=== PATIENT | male | born 1960 | race Caucasian/White ===

== ENCOUNTER 2025-04-03 19:06 | Observation (INO) | payer MEDICARE, OTHER, SELFPAY ==
[2025-04-03] VITALS (10 sets, daily range): BP systolic 119–148; BP diastolic 67–99; BMI 29.2
[2025-04-03 14:00] LABS: Hematocrit 41.4 % (39.0-52.0); Hemoglobin 13.8 g/dL (13.0-18.0); Mean Corp Hgb Conc. 33.3 g/dL (33.0-37.0); Mean Corpuscular Volume 91.6 fL (80.0-94.0); Nucleated Red Blood Cells % 0 % (-); Platelet Count 263 10^3/uL (130-400); Red Cell Dist. Width 13.6 % (11.5-14.5)
[2025-04-03 14:18] LABS: ALT (SGPT) < 10 U/L (0-50); AST (SGOT) 22 U/L (17-59); Albumin 3.8 g/dl (3.5-5.0); Alkaline Phosphatase 135 U/L (38-126); Blood Urea Nitrogen 19 mg/dl (9-20); Calcium 8.7 mg/dl (8.4-10.2); Carbon Dioxide 26 mmol/L (22-30); Chloride 106 mmol/L (98-107); Glucose 121 mg/dl (70-99); Lipase 86 U/L (23-300); Potassium 4.4 mmol/L (3.5-5.1); Sodium 137 mmol/L (135-145); Total Protein 6.8 g/dl (6.3-8.2); eGFR > 60.00
--- NOTE | 2025-04-03 14:38 | ED.GENMED ---
History of Present Illness
General
Chief Complaint: Abdominal Pain
Source: patient
Exam Limitations: none
Time Seen by Provider: 04/03/25 14:03
Nursing documentation reviewed up to this point in time: agreed with
History of Present Illness
History of Present Illness:
Patient is a 64-year-old male from [facility] with past medical history of dementia Parkinson's CAD [place] high cholesterol schizoaffective disorder presents to the ER complaining mid abdominal pain. Patient has a history as document of Parkinson's and
dementia . at bedside reports that she was told that since 4 AM patient has been grimacing complaining of abdominal pain in the lower abdominal region. He is a poor historian however grimaces on exam. She reports no fevers. Incidentally she
also reports that several days ago patient apparently fell and has some bruising to his head and was not evaluated for that. He is not on blood thinners other than aspirin. reports patient did have a bowel movement today.
Past History
Past History
ED Past Medical History: Hypercholesterolemia
Social History
Employment: Employed
Phy Exam
General Physical Exam
General Presentation: no apparent distress
General age: appears stated age
General Skin: warm and dry
General Habitus: normal
General Mental: confused (Baseline as per )
General Hydration: appears well hydrated
Cardiovascular Exam
Cardiovascular Exam: regular rate/rhythm, no murmur and normal peripheral pulses
Pulmonary Exam
Pulmonary Exam: lungs clear and no respiratory distress
Neurological Exam
Neurological Exam: alert
Musculoskeletal Exam
Musculoskeletal Exam: other ( + small Ecchymosis to posterior occiput)
Skin Exam
Skin Exam: normal color and warm/dry
Psychiatric Exam
Psychiatric Exam: normal mood/affect
Course
Orders/Labs/Results
Orders:
Orders
04/03/25 Breakfast
Cholesterol Lowering
At Your Request: Limited Participation
Cholesterol Lowering: Sodium, 2 Gram
04/03/25 13:55
Complete Blood Count/With Diff Urgent
Comprehensive Metabolic Panel Urgent
Lipase Urgent
04/03/25 14:58
CT Abd/pelvis W Iv Cont Urgent
Comment:
Reason For Exam: lower abd pain
CT Head W/o Iv Contrast Urgent
Comment:
Reason For Exam: trauma
04/03/25 14:59
0.9% Sodium Chloride 1000 ml [Nss] 1,000 ml IV BOLUS
04/03/25 15:01
Bladder Scan- Treatment ONCE
04/03/25 15:07
Carbidopa/Levodopa [Sinemet 25-100] 2 tablet PO NOW STA
04/03/25 15:14
Lidocaine 2% [Lidocaine Uro-Jet 2%] 1 syringe .ROUTE .STK-MED ONE
04/03/25 15:40
Melgar [Melgar Placement- Treatment] ONCE
Reason for insertion: Acute Retention
04/03/25 15:42
UA Reflex to Culture [Urinalysis Reflex To Culture] Urgent
Date Specimen was Collected: 04/03/25
Time Specimen was Collected: 15:40
04/03/25 18:26
Magnesium Citrate [Citroma] 300 ml PO ONCE ONE
04/03/25 18:31
Admit/Transfer Patient As Directed
Co-Sign Provider:
Level of Care: Observation services
Assign to:: Medical/Surgical
Physician / Group: ramona
Diagnosis: stercoral colitis
04/03/25 18:32
PRN Pain Medication Management As Directed
May give lesser potent ordered pain med per pt: Yes
preference::
Protocol:: Medication orders for pain may be administered in a
manner that supports deferring to patient preference
when the pt is:
- Requesting an ordered lesser potent pain medication.
Least to most potent pain medications are defined
as: acetaminophen < NSAID < tramadol < opioids
(morphine, oxycodone, hydromorphone).
- Requesting a lesser dose of the same medication IF
ORDERED.
- Requesting a less intrusive route of administration
if both routes are prescribed by the provider (PO <
IV).
04/03/25 18:33
Code Status As Directed
Resuscitation Status: Full Code
04/03/25 20:00
Carbidopa/Levodopa [Sinemet 25-100] 2 tablet PO ONCE ONE
04/03/25 20:32
Acetaminophen [Tylenol] 650 mg PO Q4HPRN PRN
Bisacodyl [Dulcolax] 10 mg RECTAL [id number] PRN
Docusate W/Senna [Senokot-S] 1 tablet PO BIDPRN PRN
Memantine HCl [Namenda] 10 mg PO BID
Polyethylene Glycol Powder [Miralax] 17 grams PO DAILYPRN PRN
Tamsulosin [Flomax] 0.4 mg PO QPM
selegiline HCl 5 mg PO BID
04/03/25 20:32
Activity As Directed
Activity Level: As Tolerated
Melgar Catheter [Catheter- Indwelling] As Directed
Reason for insertion: Acute Retention
Discontinue Date/Time: 04/06/25 0600
Vital Signs As Directed
Frequency: Per unit guidelines
Ot Eval And Treat Routine
Pt Eval And Treat Routine
Activity Level: As Tolerated
DX Deep Vein Thrombosis Video Routine
04/03/25 22:00
Divalproex Delayed Rel. 12 Hr [Depakote (12 Hr Release)] 500 mg PO HS
Donepezil HCl [Aricept] 10 mg PO HS
Polyethylene Glycol Powder [Miralax] 17 grams PO DAILY
04/04/25 06:00
Carbidopa/Levodopa [Sinemet 25-100] 2 tablet PO QID@06,10,13,16
Quetiapine Fumarate [Seroquel] 12.5 mg PO DAILY@0600
04/04/25 08:00
Amantadine [Symmetrel] 200 mg PO DAILY
Aspirin Low Dose EC [Aspir Low (Enteric Coated)] 81 mg PO DAILY
Divalproex Extended Rel. 24 Hr [Depakote ER (24 Hr Release)] 250 mg PO DAILY
Furosemide [Lasix] 20 mg PO DAILY
Metoprolol Xl [Toprol Xl] 25 mg PO DAILY
Rotigotine [Neupro] 4 mg TRANSDERM DAILY
Sennosides [Senokot] 8.6 mg PO DAILY
Sertraline HCl [Zoloft] 50 mg PO DAILY
lamotrigine [Lamictal] 150 mg PO DAILY
pimavanserin [Nuplazid] 34 mg PO DAILY
04/04/25 18:00
Atorvastatin [Lipitor] 80 mg PO QPM
Enoxaparin Sodium [Lovenox] 40 mg SC QPM
Abnormal Lab Results
04/03/25 04/03/25
13:55 15:42
RBC 4.52 L 10^6/uL
(4.70-6.10)
Abs Immat Gran (auto) 0.1 H 10^3/uL
(0-0.05)
Absolute Neuts (auto) 7.8 H 10^3/uL
(1.4-6.5)
Lymphocytes % 18.4 L %
(20.5-51.1)
Glucose 121 H mg/dl
(70-99)
Alkaline Phosphatase 135 H U/L
(38-126)
Urine Ketones 1+ A
(Negative)
04/03/25 13:55
04/03/25 13:55
Vital Signs
Initial and Last Documented VS:
Initial Vital Signs
Temp Pulse Resp BP Pulse Ox
97.5 F 65 18 119/67 96
04/03/25 13:43 04/03/25 13:43 04/03/25 13:43 04/03/25 13:43 04/03/25 13:43
Last Documented Vital Signs
Temp Pulse Resp BP Pulse Ox
98.0 F 58 18 132/75 95
04/04/25 07:05 04/04/25 07:05 04/04/25 07:05 04/04/25 07:05 04/04/25 07:05
Earth Moving Technician consulted with Physician
Earth Moving Technician consulted with physician?: Yes
Name of Physician Consulted: ari
MDM/Problems Addressed
Differential Diagnosis Includes:
Not limited to diverticulitis constipation bowel obstruction UTI urinary retention
MDM/Problems Addressed:
Patient is a 64 male with Parkinson's and dementia [facility] of [facility] discomfort. Patient has been grimacing intermittently. On exam of his abdomen he is mildly tender in the suprapubic area. Bladder scan was done
showing greater than 1000 mL of urine Melgar catheter was inserted and urine draining successfully. Because patient has dementia and Parkinson's will also obtain a CAT scan to ensure no further disease process causing patient's pain though likely it
was urinary retention. Patient is afebrile with normal white count stable hemoglobin urine is negative for infection will DC home with a Melgar bag with outpatient urology follow-up.
CAT scan however does show stercoral colitis with no perforation with this finding would recommend observation/abdmission
Chronic conditions affecting care:
Parkinson's dementia enlarged prostate
*Radiology
Radiology exam reviewed: radiology read reviewed
*Pulse Oximetry
SaO2: 96
Oxygen Mode of Delivery: Room air
Patient hypoxic: no
*Critical Care Note
Total Time (30-74mins, 75-104mins- exclusive of procedures): Not Applicable
ED Attending Note
-
Portions of this chart may have been created with voice recognition software.� Occasional wrong word or��sound alike� substitutions may have occurred due to the inherent limitations of voice recognition software.
Discharge Plan
Departure
Patient Disposition: Admit
Date of Disposition: 04/03/25
Time of Disposition: 18:04
Admit to: Med/Surg
Admit to doctor: hospitalist
Presentation/result/management discussed w/ accepting MD/DO: Hospitalist
Patient with high blood pressure during this ER visit?: No
Condition: Fair
Covid-19: Not Applicable
Discharge Problem:
Acute urinary retention, Stercoral colitis
Interventions
Interventions:
*Risk Screen - Suicide Last Done: 04/03/25 13:43
*General Assessment Last Done: 04/03/25 13:43
*Neglect/Abuse Screening Last Done: 04/03/25 13:43
*ED- Fall Risk Assessment Last Done: 04/03/25 14:25
*ED COVID-19 Vaccine History Last Done: 04/03/25 13:47
*ED Influenza Vaccine History Last Done: 04/03/25 13:47
*Nursing Disposition Last Done: 04/03/25 20:11
RG-Dllmnj-Aipfmcffky Assessment Last Done: 04/03/25 14:25
Discharge Date and Time
Discharge Date/Time: 04/03/25 20:12
--- NOTE | 2025-04-03 15:05 | EDRN ---
Pharmacy called to send sinemet at this time.
[2025-04-03] MEDS: SINEMET 25-100 2 TABLET PO ×2 (15:29→19:24)
[2025-04-03] MEDS: NSS 1000 IV (15:32)
--- NOTE | 2025-04-03 15:50 | EDRN ---
Urojet used prior to catheterization. Urine spec obtained and sent.
[2025-04-03 16:05] LABS: Urine Character Clear (Clear)
--- NOTE | 2025-04-03 18:06 | HPS.HSE ---
Family Physician
-
Family Physician: Indira Bennett
Chief Complaint
-
lower abdominal pain
History of Present Illness
64-year-old male with PMH for triple bypass, BPH, TURP, Parkinson,dementia from [facility] presents to the ER complaining mid lower abdominal pain abdominal pain. he voided today morning. he had bowel move yesterday. denied RYDER, dizzy, fever,
chills, chest pain, sob. denied hematuria. Incidentally she also reports that several days ago patient apparently fell and has some bruising to his head and was not evaluated for that. He is not on blood thinners other than aspirin.
His bladder was scanned and noted to have greater than thousand urine in the bladder. Melgar placed. Admitting for further management
Medical History
Past Medical History
Past Medical History: Reports Other
Additional Past Medical History:
Parkinson disease, dementia, coronary artery disease, hyperlipidemia, anxiety
Past Surgical History: Reports None
Additional Past Surgical History:
Triple bypass, TURP
Social History
Tobacco: Former Smoker
Alcohol: None
Drug: None
Personal:
Living: [facility]
Family History
Family History: Not pertinent
Allergies / Home Medications
Allergies reflects when Allergies were last updated in [employer].
Home Medications with original date entered in [employer]
Allergy/Medication List:
Allergies
Allergy/AdvReac Type Severity Reaction Status Date / Time
No Known Allergies Allergy Verified 04/03/25 13:46
Home Medications
Lorazepem Gel 1mg/Ml 1 applic topical Q4HPRN PRN ANXIETY 04/03/25
acetaminophen 325 mg tablet (Tylenol) 650 mg PO Q6HPRN PRN MILD PAIN 04/03/25
amantadine HCl 100 mg capsule 200 mg PO DAILY 04/03/25
aspirin 81 mg tablet,delayed release 81 mg PO DAILY 04/03/25
atorvastatin 80 mg tablet (Lipitor) 80 mg PO QPM High Cholesterol 04/03/25
bisacodyl 10 mg rectal suppository (Dulcolax (bisacodyl)) 10 mg IN DAILYPRN PRN IF NO BM AFTR MOM 04/03/25
carbidopa 25 mg-levodopa 100 mg tablet 2 tab PO QID@06,10,13,16 04/03/25
divalproex 250 mg tablet,extended release 24 hr (Depakote ER) 250 mg PO DAILY Mental Health/Anxiety 04/03/25
divalproex 500 mg tablet,delayed release (Depakote) 500 mg PO HS Mental Health/Anxiety 04/03/25
donepezil 10 mg tablet (Aricept) 10 mg PO HS 04/03/25
furosemide 20 mg tablet (Lasix) 20 mg PO DAILY 04/03/25
ibuprofen 200 mg tablet (Motrin IB) 800 mg PO Q8HPRN PRN MILD PAIN 04/03/25
lamotrigine 150 mg tablet (Lamictal) 150 mg PO DAILY Mental Health/Anxiety 04/03/25
magnesium hydroxide 400 mg/5 mL oral suspension (Milk of Magnesia) 2,400 mg PO [id number] PRN CONSTIPATION 04/03/25
memantine 10 mg tablet 10 mg PO BID 04/03/25
metoprolol succinate 25 mg tablet,extended release 24 hr (Toprol XL) 25 mg PO DAILY Heart Disease/Condition 04/03/25
pimavanserin 34 mg capsule (Nuplazid) 34 mg PO DAILY 04/03/25
quetiapine 25 mg tablet (Seroquel) 12.5 mg PO DAILY@0600 Mental Health/Anxiety 04/03/25
rotigotine 4 mg/24 hour transdermal 24 hour patch (Neupro) 4 mg transdermal DAILY 04/03/25
selegiline HCl 5 mg tablet 5 mg PO BID 04/03/25
sennosides 8.6 mg tablet (senna) 8.6 mg PO DAILY Constipation 04/03/25
sertraline 50 mg tablet 50 mg PO DAILY 04/03/25
sodium phosphates 19 gram-7 gram/118 mL enema (Fleet Enema) 118 ml IN DAILYPRN PRN CONSTIPATION 04/03/25
tamsulosin 0.4 mg capsule 0.4 mg PO QPM Urinary Issue 04/03/25
therapeutic multivitamin 1 tab PO DAILY 04/03/25
Review of Systems
-
Constitutional: Reports No Symptoms
EENT: Reports No Symptoms
Respiratory: Reports No Symptoms
Cardiac: Reports No Symptoms
Abdomen/GI: Reports Abdominal Pain
: Reports No Symptoms
Musculoskeletal: Reports No Symptoms
Skin: Reports No Symptoms
Neurological: Reports No Symptoms
Endocrine: Reports No Symptoms
Hematologic/Lymphatic: Reports No Symptoms
Psych: Reports No Symptoms
Physical Exam
Vital Signs
Vital Signs
Temp Pulse Resp BP Pulse Ox
97.5 F 61 17 138/76 96
04/03/25 13:43 04/03/25 17:45 04/03/25 17:45 04/03/25 17:21 04/03/25 17:30
Physical Exam
General: Well Developed, Well Nourished and No Apparent Distress
HEENT: NormoCephalic, Moist mucous membranes and Atraumatic
Respiratory: Clear
Cardiac: S1/S2 and Regular Rhythm; No Murmur or Rub
GI: Soft, Non Tender, Non Distended and Normal Bowel Sounds; No Organomegaly
Rectal: Deferred by Provider
Musculoskeletal: No Clubbing, No Cyanosis and No Edema
Skin: No Rash
Neuro: Nonfocal/grossly intact
Psych: Calm
Laboratory Results
-
04/03/25 13:55
04/03/25 13:55
Laboratory Results
Total Bilirubin 0.7 mg/dl (0.2-1.3) 04/03/25 13:55
AST 22 U/L (17-59) 04/03/25 13:55
ALT < 10 U/L (0-50) 04/03/25 13:55
Alkaline Phosphatase 135 U/L (38-126) H 04/03/25 13:55
Lipase 86 U/L (23-300) 04/03/25 13:55
Data Reviewed
-
CT Scan: Report Reviewed by me
Lab Data: Labs Reviewed by me
Impression/Plan
-
#abdominal pain likely from stercoral colitis
-CT abdomen pelvis with Significant distention of the rectum with stool. Circumferential rectal wall thickening with stranding in the perirectal fat. Findings are compatible with stercoral colitis. No evidence for perforation.Melgar catheter is
present within the urinary bladder, and the urinary bladder is collapsed, relatively anteriorly displaced due to rectal distention. There is fluid within the upper pelvis adjacent to the superior margin of the bladder, which is also close to the
rectosigmoid junction. This ill-defined fluid is felt to most likely be on the basis of stercoral colitis, although cystitis adjacent to the superior bladder wall is also a possibility.
- Patient is ordered mag citrate
# urinary retention
-bladder scan >1000
-Melgar in place
-Flomax continued
# Fall
-PT/OT consulted
-Head CT negative
# Coronary artery disease
# history of triple bypass
- Aspirin continued
- Statin continued
# History for Parkinson's/dementia
# Anxiety
-Amantadine continued
-Carbidopa levodopa, Aricept continue
-Depakote, Lamictal, Namenda Nuplazid, Seroquel.Neupro,selegiline,sertraline, continued
# Hypertension
-Lasix, Toprol continued
#DVT Prophylaxis
-Lovenox
#CODE status
-full code
--- NOTE | 2025-04-03 18:08 | W.PN.UPDATE ---
Update Note
Progress Note Update
I saw and examined the patient.
The [employer] CONSULTANT or PA's note was reviewed and I agree with the note.
64 y/o M p/w CC abd pain, hx limited due to dementia.
Gen: NAD, Awake and alert
Eyes: EOMI, PERRLA, no scleral icterus.
Neck: supple.
CV: RRR, +S1/S2, no m/r/g.
Resp: CTAB, no rales, wheezes, or rhonchi.
Abd: +BS, soft, suprapubic and left lower quadrant tenderness to palpation, ND
Skin: No rashes.
Neuro: CN 2-12 intact, non-focal.
Psych: Normal mood and affect.
Allergies
Allergy/AdvReac Type Severity Reaction Status Date / Time
No Known Allergies Allergy Verified 04/03/25 13:46
Home Medications
Lorazepem Gel 1mg/Ml 1 applic topical Q4HPRN PRN ANXIETY 04/03/25
acetaminophen 325 mg tablet (Tylenol) 650 mg PO Q6HPRN PRN MILD PAIN 04/03/25
amantadine HCl 100 mg capsule 200 mg PO DAILY 04/03/25
aspirin 81 mg tablet,delayed release 81 mg PO DAILY 04/03/25
atorvastatin 80 mg tablet (Lipitor) 80 mg PO QPM High Cholesterol 04/03/25
bisacodyl 10 mg rectal suppository (Dulcolax (bisacodyl)) 10 mg SC DAILYPRN PRN IF NO BM AFTR MOM 04/03/25
carbidopa 25 mg-levodopa 100 mg tablet 2 tab PO QID@06,10,13,16 04/03/25
divalproex 250 mg tablet,extended release 24 hr (Depakote ER) 250 mg PO DAILY Mental Health/Anxiety 04/03/25
divalproex 500 mg tablet,delayed release (Depakote) 500 mg PO HS Mental Health/Anxiety 04/03/25
donepezil 10 mg tablet (Aricept) 10 mg PO HS 04/03/25
furosemide 20 mg tablet (Lasix) 20 mg PO DAILY 04/03/25
ibuprofen 200 mg tablet (Motrin IB) 800 mg PO Q8HPRN PRN MILD PAIN 04/03/25
lamotrigine 150 mg tablet (Lamictal) 150 mg PO DAILY Mental Health/Anxiety 04/03/25
magnesium hydroxide 400 mg/5 mL oral suspension (Milk of Magnesia) 2,400 mg PO [id number] PRN CONSTIPATION 04/03/25
memantine 10 mg tablet 10 mg PO BID 04/03/25
metoprolol succinate 25 mg tablet,extended release 24 hr (Toprol XL) 25 mg PO DAILY Heart Disease/Condition 04/03/25
pimavanserin 34 mg capsule (Nuplazid) 34 mg PO DAILY 04/03/25
quetiapine 25 mg tablet (Seroquel) 12.5 mg PO DAILY@0600 Mental Health/Anxiety 04/03/25
rotigotine 4 mg/24 hour transdermal 24 hour patch (Neupro) 4 mg transdermal DAILY 04/03/25
selegiline HCl 5 mg tablet 5 mg PO BID 04/03/25
sennosides 8.6 mg tablet (senna) 8.6 mg PO DAILY Constipation 04/03/25
sertraline 50 mg tablet 50 mg PO DAILY 04/03/25
sodium phosphates 19 gram-7 gram/118 mL enema (Fleet Enema) 118 ml SC DAILYPRN PRN CONSTIPATION 04/03/25
tamsulosin 0.4 mg capsule 0.4 mg PO QPM Urinary Issue 04/03/25
therapeutic multivitamin 1 tab PO DAILY 04/03/25
Lab Results
04/03/25 04/03/25
13:55 15:42
WBC 10.6
RBC 4.52 L
Hgb 13.8
Hct 41.4
MCV 91.6
MCH 30.5
MCHC 33.3
RDW 13.6
Plt Count 263
MPV 9.5
Abs Immat Gran (auto) 0.1 H
Absolute Neuts (auto) 7.8 H
Absolute Lymphs (auto) 1.9
Absolute Monos (auto) 0.6
Absolute Eos (auto) 0.1
Absolute Basos (auto) 0.0
Immature Gran % 0.5
Neutrophils % 73.7
Lymphocytes % 18.4 L
Monocytes % 6.1
Eosinophils % 0.9
Basophils % 0.4
Nucleated RBC % 0
Sodium 137
Potassium 4.4
Chloride 106
Carbon Dioxide 26
BUN 19
Creatinine 0.9
eGFR > 60.00
Glucose 121 H
Calcium 8.7
Total Bilirubin 0.7
AST 22
ALT < 10
Alkaline Phosphatase 135 H
Total Protein 6.8
Albumin 3.8
Lipase 86
Urine Color Sylvia
Urine Clarity Clear
Urine pH 7.0
Ur Specific [place] 1.010
Urine Ketones 1+ A
Ur Occult Blood Reflex Negative
Urine Nitrite (Reflex) Negative
Urine Bilirubin Negative
Urine Urobilinogen Negative
Leukocyte Esterase Rfl Negative
Urine Glucose Negative
Urine Albumin (Reflex) Negative
CT brain: No evidence of acute intracranial abnormality.
CT A/P: Significant distention of the rectum with stool. Circumferential rectal wall thickening with stranding in the perirectal fat. Findings are compatible with stercoral colitis. No evidence for perforation. Minaya catheter is present within the
urinary bladder, and the urinary bladder is collapsed, relatively anteriorly displaced due to rectal distention. There is fluid within the upper pelvis adjacent to the superior margin of the bladder, which is also close to the rectosigmoid junction.
This ill-defined fluid is felt to most likely be on the basis of stercoral colitis, although cystitis adjacent to the superior bladder wall is also a possibility.
Acute urinary retention:
-start Flomax
-minaya placed which will remain in place on d/c, outpt Uro f/u
Constipation/stercoral colitis:
- Mag citrate x 1
- Start MiraLAX in the morning
- May need an enema tomorrow
Anticipated discharge tomorrow
--- NOTE | 2025-04-03 20:20 | PTCARENOTE ---
Addendum entered by Angela Espinoza RN 04/04/25 05:36:
Neupro patch located to posterior left shoulder, CDI.
Original Note:
Patient arrived from ED via stretcher to 320, at bedside, pulled over to bed with assist of 3 person. Patient alert, able to answer questions, appears to be forgetful and confused at times. does report recent falls, bed alarm placed on
patient. Hx Parksinsons and Dementia, tremors noted to UEs. Scab to right side of scalp, left inner ankle, and B/L knees with bandaids intact. Red, blanchable sacrum noted. Evening medications provided to patient, tolerating whole with water, no
issues. Boxed lunch also provided to patient, assisted. Patient resting in bed, call fuchs in reach, bed alarm maintained. Will monitor.
[2025-04-03] MEDS: MIRALAX 17 GRAMS PO (21:13)
[2025-04-03] MEDS: ARICEPT 10 MG PO (21:13)
[2025-04-03] MEDS: FLOMAX 0.4 MG PO (21:13)
[2025-04-03] MEDS: CITROMA 300 ML PO (21:13)
[2025-04-03] MEDS: NAMENDA 10 MG PO (21:15)
[2025-04-03] MEDS: DEPAKOTE (12 HR RELEASE) 500 MG PO (21:15)
[2025-04-03] MEDS: BENTYL 20 MG PO (21:52)
--- NOTE | 2025-04-03 23:00 | PTCARENOTE ---
Significant intermittent spasms noted to abdomen that patient and report are very painful. Patient with increased rate of tremors and also noted to thrash around the bed during these episodes. Notified ROBINSON Gordon -- one time dose Bentyl
ordered and provided to patient, see MAR. updated on medication. Upon reassessment, patient reports the spasms are much better and that he is much more comfortable at this time. Will monitor.
[2025-04-04] MEDS: SINEMET 25-100 2 TABLET PO ×3 (06:08→13:24)
[2025-04-04] MEDS: SEROQUEL 12.5 MG PO (06:09)
[2025-04-04 07:05] VITALS: BP 132/75
[2025-04-04] MEDS: ASPIR LOW (ENTERIC COATED) 81 MG PO (08:09)
[2025-04-04] MEDS: TOPROL XL 25 MG PO (08:09)
[2025-04-04] MEDS: NEUPRO 4 MG TRANSDERM (08:10)
[2025-04-04] MEDS: NAMENDA 10 MG PO (08:11)
[2025-04-04] MEDS: LAMICTAL 150 MG PO (08:11)
[2025-04-04] MEDS: LASIX 20 MG PO (08:12)
[2025-04-04] MEDS: SYMMETREL 200 MG PO (08:12)
[2025-04-04] MEDS: ZOLOFT 50 MG PO (08:12)
[2025-04-04] MEDS: DEPAKOTE ER (24 HR RELEASE) 250 MG PO (08:12)
[2025-04-04] MEDS: MIRALAX PO (09:14)
[2025-04-04 09:31] VITALS: BP 126/60; PULSE 61; O2SAT 94
[2025-04-04 09:34] VITALS: BP 126/60
--- NOTE | 2025-04-04 09:35 | W.PN.HOSP.TC ---
Today's Communication/Plan
-
see plan
Assessment / Plan
Assessment / Plan
Gen: NAD, well developed, well nourished
CV: RRR, +S1/S2, no m/r/g.
Resp: CTAB, no rales, wheezes, or rhonchi.
Abd: +BS, soft, NT, ND
Skin: No rashes.
Neuro: sleeping
Psych: calm
CT brain: No evidence of acute intracranial abnormality.
CT A/P: Significant distention of the rectum with stool. Circumferential rectal wall thickening with stranding in the perirectal fat. Findings are compatible with stercoral colitis. No evidence for perforation. Minaya catheter is present within the
urinary bladder, and the urinary bladder is collapsed, relatively anteriorly displaced due to rectal distention. There is fluid within the upper pelvis adjacent to the superior margin of the bladder, which is also close to the rectosigmoid junction.
This ill-defined fluid is felt to most likely be on the basis of stercoral colitis, although cystitis adjacent to the superior bladder wall is also a possibility.
Acute urinary retention:
-Flomax started
-minaya placed in the ER which will remain in place on d/c
-outpt Uro f/u
Constipation/stercoral colitis:
-s/p Mag citrate x 1 on day of admission
-s/p large BM this AM
-start daily MiraLAX
Other problems:
CAD with h/o CABG x 3: cont ASA/statin/BB
Parkinson's disease with Parkinson's dementia and anxiety: cont amantadine/carbidopa-levodopa/aricept/depakote/lamictal/namenda/nupro/seroquel/sertraline
Essential HTN: Cont Lasix/Toprol XL
FULL/Lovenox
Medically cleared for d/c.
Total time spent on d/c = 31 min. This included today's physical exam, progress note, review of laboratory and diagnostic data, preparation of discharge documents and prescriptions, and discussions about the pt's hospital course and discharge plan
with the patient and other medical assistant instructor involved in the patient's care.
Anticipated Discharge: Today
Subjective/Interval History
-
Date of Service: April 04, 2025
Pt sleeping. Had a large BM this AM.
Objective Data
-
Vital Signs:
Vital Signs
Temp Pulse Resp BP Pulse Ox
98.0 F 58 18 132/75 95
04/04/25 07:05 04/04/25 07:05 04/04/25 07:05 04/04/25 07:05 04/04/25 07:05
I&O
04/03/25 04/04/25 04/05/25
06:59 06:59 06:59
Intake Total 600 / 600
Output Total 2425 / 2425
Balance -1825 / -1825
--- NOTE | 2025-04-04 10:49 | CM ---
Patient was admitted under OBS from [facility], MEDLEY letter signed and placed on chart, patient with dementia, Parkinson's and Schizoaffective disorder, spouse asking for another longterm facility, director of casework had a long conversation with
patient's spouse, informed her that physician was going to clear patient for discharge today and patient will need to return to [facility], suggested that patient's spouse reach out to facilities close to her home in the future to review alternative
placement.
Plan; patient to return to [facility] today by ambulance.
[facility]
Report [phone]
[2025-04-04] MEDS: PREVNAR 20 0.5 ML IM (11:13)
[2025-04-04] MEDS: FLUZONE HIGH-DOSE 2025-26 0.5 ML IM (11:14)
--- NOTE | 2025-04-04 13:45 | PTCARENOTE ---
report given to wilmar pepper
[2025-04-04 14:08] VITALS: BP 102/53
== END 2025-04-04 14:23 ==
LOC: 3 WEST ACU 19:06
PROVIDERS: Emergency Medicine; Nurse Practitioner; ADMITTING PHYSICIAN Internal Medicine; EMERGENCY PHYSICIAN Emergency Medicine; FAMILY PHYSICIAN Psychiatry & Neurology Neurology; REFERRING PHYSICIAN Internal Medicine Cardiovascular Disease
DX: K52.89 Other specified noninfective gastroenteritis and colitis (principal); E78.00 Pure hypercholesterolemia, unspecified; R33.8 Other retention of urine; I25.10 Atherosclerotic heart disease of native coronary artery without angina pectoris; I10 Essential (primary) hypertension; F02.84 Dementia in other diseases classified elsewhere, unspecified severity, with anxiety; K59.00 Constipation, unspecified; F25.9 Schizoaffective disorder, unspecified; G20.A1 Parkinson's disease without dyskinesia, without mention of fluctuations; N40.1 Benign prostatic hyperplasia with lower urinary tract symptoms; Z23 Encounter for immunization; Z79.899 Other long term (current) drug therapy; Z87.891 Personal history of nicotine dependence; Z79.82 Long term (current) use of aspirin; Z95.1 Presence of aortocoronary bypass graft
CPT/HCPCS: 51702; 51798; 70450; 74177; 80053; 81003; 83690; 85025; 90662; 90677; 96360; 96361; 97163; 97167; 99285; G0008; G0009; G0378; Q9967